=== PATIENT | female | born 1950 | race Caucasian/White ===

== ENCOUNTER 2017-10-17 15:15 | Outpatient (CLI) | payer MEDICARE | END 2017-10-17 15:16 | disposition home or self-care (01) | LOC: BICRAD 15:15 | PROVIDERS: ATTEND Family Medicine | DX: R06.02 Shortness of breath (principal); R07.89 Other chest pain; R05 Cough; Z86.79 Personal history of other diseases of the circulatory system | CPT/HCPCS: 71046 ==

== ENCOUNTER 2018-01-05 16:48 | Outpatient (CLI) | payer MEDICARE | END 2018-01-05 16:49 | disposition home or self-care (01) | LOC: BICRAD 16:48 | PROVIDERS: ATTEND Family Medicine | DX: J18.9 Pneumonia, unspecified organism (principal); R91.8 Other nonspecific abnormal finding of lung field | CPT/HCPCS: 71046 ==

== ENCOUNTER 2019-02-01 09:04 | Observation (INO) | payer MEDICARE ==
--- NOTE | 2019-02-01 09:52 | RAD ---
Chest AP view INDICATION: Chest pain COMPARISON: December 03, 2015 and January 05, 2018 FINDINGS: Lungs:The lungs are clear Cardiac silhouette pulmonary vasculature:The cardiomediastinal silhouette appears within normal limit s. Pleural spaces:No pleural effusion or pneumothorax is demonstrated. Upper abdomen:No abnormality seen. Osseous structures: No acute osseous abnormality. IMPRESSION: No acute cardiopulmonary abnormality.
[2019-02-01 09:53] LABS: #Eosinphils 0.1 thou/uL (0.0-0.7); #Lymphocytes 1.6 thou/uL (1.20-3.40); #Monocytes 0.3 thou/uL (0.11-0.59); #Neutrophils 4.2 thou/uL (1.40-6.50); %Basophils 0.8 % (0.0-1.0); %Eosinophils 1.6 % (0.0-10.0); %Lymphocytes 25.8 % (21.0-51.0); %Monocytes 4.2 % (0.0-10.0); %Neutrophils 67.6 % (42.0-75.0); Hemoglobin 13.5 g/dL (12.0-16.0); Mean Corpuscular HGB CONC 33.9 g/dL (32.0-36.0); Mean Corpuscular Hemoglobin 35.3 pg (27.0-31.0); Mean Platelet Volume 6.4 fL (7.4-10.4); Platelet Count 231 thou/uL (130-400); RBC Distribution Width 13.3 % (11.5-14.5); Red Blood Cell (RBC) Count 3.82 mill/uL (4.20-5.40); White Blood Cell (WBC) Count 6.3 thou/uL (4.8-10.8)
[2019-02-01 10:16] LABS: ALT (SGPT) 14 U/L (8-55); AST (SGOT) 16 U/L (5-34); Albumin 4.3 g/dL (3.4-4.8); Alkaline Phosphatase 84 U/L (40-150); Anion Gap 16 mmol/L (10-20); BUN (Urea Nitrogen) 11 mg/dL (9.8-20.1); Bilirubin, Total 0.8 mg/dL (0.2-1.2); CK (CPK) 54 U/L (29-168); Calc. Creatinine Clearance 0 mL/min (70-130); Carbon Dioxide 24 mmol/L (23-31); Chloride 104 mmol/L (98-107); Estimated GFR-MDRD 63; Globulin 2.6 g/dL (2.4-3.5); Glucose 176 mg/dL (80-115); Potassium 4.2 mmol/L (3.5-5.1); Protein, Total 6.9 g/dL (6.0-8.3); Sodium 140 mmol/L (136-145)
[2019-02-01] MEDS ORDERED: Ondansetron PF 4 MG/2 ML Vial ONE (10:43)
[2019-02-01] MEDS ORDERED: Pantoprazole 40 MG VIAL ONE (10:43)
[2019-02-01] MEDS ORDERED: Lidocaine Viscous Sol 2% 15 ml UD Cup ONE (10:43)
[2019-02-01] MEDS ORDERED: Mag-Al 1200 mg/1200 mg/30 ML UDCUP ONE (10:43)
[2019-02-01] MEDS ORDERED: Nitroglycerin 0.4 MG TAB 1 EACH ONE (11:00)
[2019-02-01] MEDS ORDERED: Fentanyl 100 MCG/2 ML VIAL ONE (11:40)
[2019-02-01] MEDS ORDERED: Nitroglycerin 0.4 MG TAB (25 Tab Bottle) PO PRN (12:46)
[2019-02-01] MEDS ORDERED: Dextrose 5% in Water 1,000 ML IV PRN (12:56)
[2019-02-01] MEDS ORDERED: Dextrose 50% Abboject 50 ML SYRINGE SLOW IVP PRN (12:56)
[2019-02-01] MEDS ORDERED: HumaLOG 300 UNITS/3 ML VIAL SC PRN (12:56)
[2019-02-01] MEDS ORDERED: Fentanyl 100 MCG/2 ML VIAL SLOW IVP PRN (12:57)
[2019-02-01] MEDS ORDERED: Lidocaine 2% Viscous Solution 10 ML, Aluminum & Magnesium Hydroxide 30 ML SSW SCH (13:00)
[2019-02-01] MEDS ORDERED: Promethazine HCl 25 MG/ML VIAL ONE (13:05)
--- NOTE | 2019-02-01 13:28 | HP ---
PRIMARY CARE PROVIDER: Dr. Elvia Hurd. RN TRAVELING: Dr. Conti. CHIEF COMPLAINT: Chest pain. HISTORY OF PRESENT ILLNESS: Ms. Gallegos is a pleasant 68-year-old lady, who was seen at [facility] on February 01, 2019. She reports that she developed chest pain around 4:00 a.m. It is retrosternal, sharp, radiating to the back, burning kind of sensation, constant, improved with morphine. She received nitrates and GI cocktail, but reports that they did not help. She denies any fevers or chills. She reports nausea and vomiting. She reports that similar pain is present in her epigastrium as well. REVIEW OF SYSTEMS: All other systems reviewed and found to be negative. PAST MEDICAL HISTORY: Atrial fibrillation, osteoarthritis, hypertension, diabetes mellitus type 2, gastric ulcer in the past, right ankle fracture, and left ankle fracture. PAST SURGICAL HISTORY: Right hip surgery, hysterectomy, right-sided lumpectomy. PSYCHIATRIC HISTORY: Anxiety and depression. SOCIAL HISTORY: The patient denies tobacco use, alcohol use, or recreational drug use. FAMILY HISTORY: Several family members with myocardial infarction. CODE STATUS: I discussed her code status. She is full code. ALLERGIES: CODEINE, CORTISONE, AND IBUPROFEN. CURRENT MEDICATIONS: 1. Benzonatate 200 mg as needed. 2. Ferrous sulfate 325 mg 2 times a day. 3. [place] p.r.n. 4. Lasix 40 mg daily. 5. Promethazine 25 mg every 6 hours as needed. 6. Digoxin 125 mcg daily. 7. Duloxetine 60 mg daily. 8. Metformin 500 mg 2 times a day. 9. DHA one capsule daily. 10. Brintellix 15 mg 2 times a day. PHYSICAL EXAMINATION: GENERAL: On examination, Ms. Gallegos is awake and alert, not in acute distress. She is obese. VITAL SIGNS: Blood pressure is 131/59, pulse 56, respiratory rate 18, and oxygen saturation 97% on 2 L. She is afebrile. EYES: No scleral icterus, no conjunctival pallor. ENT: Moist mucosal membranes. No oropharyngeal erythema or exudates. NECK: Supple, nontender, trachea is midline. RESPIRATORY: Accessory muscles of breathing are not active. Chest wall movements are symmetric bilaterally. Lungs are clear to auscultation without wheeze, rhonchi, or crepitations. CARDIOVASCULAR: S1 and S2 are heard, bradycardic and regular. Peripheral pulses palpable. No carotid bruit. No pericardial rub. ABDOMEN: Soft, nontender, bowel sounds heard, no hepatomegaly, no splenomegaly. SKIN: No rashes or subcutaneous nodules. LYMPHATIC: No cervical lymphadenopathy. NEUROLOGIC: Cranial nerves 2 through 12 are intact. MUSCULOSKELETAL: Power is 5/5 in all four extremities. PSYCHIATRIC: Normal mood, normal affect, the patient is oriented to person, place, and time. LABORATORY DATA: Ms. Gallegos's labs and investigations were reviewed. I reviewed her electrocardiogram, which shows normal sinus rhythm, no ST changes to suggest an acute coronary syndrome. I also reviewed her chest x-ray, which does not show any pulmonary infiltrates. She has an unremarkable CBC and an unremarkable comprehensive metabolic profile. First troponin I is negative. ASSESSMENT AND PLAN: Ms. Gallegos is a pleasant 68-year-old lady, who was seen at [facility] on February 01, 2019. Her problem list includes: 1. Chest pain: Ms. Gallegos is presenting with chest pain. Her chest pain is atypical. She has not found any relief with nitrates or with GI cocktail. She reports that the chest pain has not resolved and it is ongoing, although it has improved after she received morphine. She will be admitted on observation status for telemetry monitoring. We will also consult Cardiology Service. Please note that the patient has not received morphine, but she has received fentanyl in the emergency room. 2. Diabetes mellitus type 2: We will start Accu-Cheks and insulin sliding scale. 3. Hypertension: We will monitor vital signs and titrate antihypertensives as needed. 4. Osteoarthritis: Stable. 5. History of atrial fibrillation: The patient is currently in sinus rhythm. Many thanks for allowing me to participate in your patient's care. Please feel free to contact me with any questions or concerns. LEVEL OF RISK: High. LEVEL OF COMPLEXITY: High. Job ID: [id number]
[2019-02-01 13:43] LABS: Troponin I Less than 0.010 ng/mL (< 0.028)
[2019-02-01 14:17] VITALS: BMI 37.8
[2019-02-01 16:38] LABS: Troponin I Less than 0.010 ng/mL (< 0.028)
[2019-02-01] MEDS: Ondansetron ODT 4 MG TAB PO SCH (18:00)
--- NOTE | 2019-02-01 18:20 | CON ---
DATE OF CONSULTATION: 02/01/2019 PRIMARY BULK PALLET BUILDER: Ramila Conti MD REASON FOR CONSULTATION: Chest pain. HISTORY OF PRESENT ILLNESS: Ms. Gallegos is a pleasant 68-year-old black female, who comes to the hospital for nausea, vomiting, and chest pain. She states at 4:00 am she started having mid epigastric chest pain that woke her up, radiating to the back. Describes a burning sensation. She started vomiting and has been dry heaving all day long pretty much. She came to the ER secondary to this and received a GI cocktail with no improvement whatsoever. She also had nitrates, which did not improve her pain, morphine helped. Currently, she is chest-pain free. Her last stress test with Dr. Conti was in 2017, which was normal. PAST MEDICAL HISTORY: 1. History of SVT. 2. There is history of atrial fibrillation. I see no evidence of atrial fibrillation in any of her notes. She has been in SVT before, but never in atrial fibrillation. 3. Osteoarthritis. 4. Hypertension. 5. Type 2 diabetes. 6. Gastric ulcer in the past. 7. Right ankle fracture. 8. Left ankle fracture. PAST SURGICAL HISTORY: 1. Right hip surgery. 2. Hysterectomy. 3. Right-sided lumpectomy. SOCIAL HISTORY: No alcohol, tobacco, or drugs. FAMILY HISTORY: Early coronary artery disease in mother and father. OUTPATIENT MEDICATIONS: Include: 1. Benzonatate. 2. Ferrous sulfate. 3. [place] p.r.n. 4. Lasix 40 mg a day. 5. Promethazine. 6. Digoxin 125 mcg a day. 7. Duloxetine 60 mg a day. 8. Metformin 500 mg b.i.d. 9. DHA. 10. Brintellix 15 mg twice a day. ALLERGIES: CODEINE, CORTISONE, AND IBUPROFEN. REVIEW OF SYSTEMS: A 12-point review of systems was done and was found to be negative unless stated in the history of present. PHYSICAL EXAMINATION: VITAL SIGNS: Temperature 98.6, pulse 65, respiratory rate 20, saturating 98% on room air, and blood pressure 150/69. GENERAL: Awake, alert, and oriented x3, in no distress. HEENT: Normocephalic and atraumatic. NECK: Supple. LUNGS: Clear. CARDIOVASCULAR: S1 and S2. No S3 or S4. ABDOMEN: Soft. Positive bowel sounds. Mild epigastric pain. No rebound or guarding. EXTREMITIES: Trace edema. SKIN: Warm and dry. LABORATORY DATA: Laboratory work was reviewed. CBC is unremarkable. Chemistries are unremarkable except for glucose of 176. Troponin is undetectable x2. EKG was reviewed. ASSESSMENT AND PLAN: 1. Epigastric pain. 2. Chronic obstructive pulmonary disease. 3. History of tobacco use. 4. History of gastric ulcer in the past. PLAN: 1. We will get a stress test to risk stratify. However, her pain is most likely GI in nature. We would continue PPI b.i.d. and possibly call GI if this pain persists. 2. We will rule out the heart with a stress test and that is the case, she may need an endoscopy as an outpatient. 3. Dr. Conti, her primary automobile painter will follow up in the morning. Job ID: [id number]
[2019-02-01] MEDS ORDERED: Acetaminophen 325 MG TAB PO PRN (18:24)
[2019-02-02] MEDS: Ondansetron ODT 4 MG TAB PO SCH ×3 (00:45→14:40)
[2019-02-02 04:36] LABS: Bilirubin Negative (Negative); Blood, Urine Small (Negative); Clarity CLEAR (Clear); Glucose, Urine (Dipstick) Negative (Negative); Leukocyte Small (Negative); Nitrite Positive (Negative); Protein, Urine (Dipstick) Negative (Neg-Trace); Specific Gravity, Urine 1.025 (1.002-1.036); Urobilinogen 0.2 mg/dL (0.2-1.0); pH, Urine 5.5 (5.0-9.0)
[2019-02-02 04:38] LABS: Bacteria/HPF 4+ HPF (None Seen); Hyaline Casts/LPF 0-3 HYALINE CAST LPF (0-3 Hyaline); Pathc Cast-AUWi Flag 0.27 (0-2.49); RBC/HPF 0-3 HPF (0-3); Squamous Epithelial 0-3 HPF (0-3)
[2019-02-02] MEDS ORDERED: Regadenoson 0.4 MG/5 ML SYRINGE ONE (08:22)
[2019-02-02] MEDS ORDERED: PROVENTIL INHALER 6.7 G (200 INHALATIONS) INH PRN (08:25)
[2019-02-02] MEDS ORDERED: Non-Formulary Item 1 EACH (Cholecalciferol (Vitamin D3) [Vitamin D3] 50,000 UNIT) PO SCH (08:30)
[2019-02-02] MEDS ORDERED: Ergocalciferol 1.25 MG(50,000 UNITS) CAP PO SCH (08:45)
[2019-02-02] MEDS ORDERED: Ferrous Sulfate 325 MG TAB PO SCH (09:00)
[2019-02-02] MEDS ORDERED: Vortioxetine Hydrobromide [Trintellix] 10 MG PO SCH (09:00)
[2019-02-02] MEDS ORDERED: Non-Formulary Item 1 EACH (Losartan Potassium [Losartan Potassium] 50 MG) PO SCH (09:00)
[2019-02-02] MEDS ORDERED: ALPRAZolam 0.25 MG TAB PO SCH ×2 (09:00)
[2019-02-02] MEDS ORDERED: Non-Formulary Item 1 EACH (Ferrous Sulfate [Ferrous Sulfate] 325 MG) PO SCH (09:00)
[2019-02-02] MEDS ORDERED: Furosemide 20 MG TAB PO SCH (09:00)
[2019-02-02] MEDS ORDERED: Digoxin 0.125 MG TAB PO SCH (09:00)
[2019-02-02] MEDS ORDERED: Losartan 25 MG TAB PO SCH (09:00)
[2019-02-02] MEDS ORDERED: Non-Formulary Item 1 EACH (Fluticasone/Vilanterol [Breo Ellipta 200-25 Mcg Inh] 1 PUFF) INH SCH (09:00)
[2019-02-02] MEDS ORDERED: Aspirin 325 mg Enteric Coated Tablet PO SCH (09:00)
[2019-02-02] MEDS ORDERED: Aspirin 81 mg Enteric Coated Tablet PO SCH (09:00)
[2019-02-02] MEDS ORDERED: Non-Formulary Item 1 EACH (Vortioxetine Hydrobromide [Trintellix] 10 MG) PO SCH (09:00)
--- NOTE | 2019-02-02 11:48 | PDOC.CTH ---
Cardiology Progress Note - Subjective The pt seen and examined. No overnight events. No cardiac complaints. - Objective Vital Signs Temp Pulse Resp BP Pulse Ox 02/02/19 11:06 99.7 F H 73 16 107/54 L 92 L 02/02/19 09:09 80 02/02/19 08:51 99.2 F 80 16 113/56 L 95 02/02/19 04:05 99.6 F 74 18 129/61 95 Weight 232 lb 1.6 oz 02/01/19 02/02/19 02/03/19 06:59 06:59 06:59 Intake Total 1170 Output Total 500 Balance 670 - Physical Examination General/Neuro: alert & oriented x3 Neck: no JVD present Lungs: CTA Heart: RRR Abdomen: soft Extremities: other: (No edema) - Telemetry Telemetry Rhythm: SR - Labs Result Diagrams: 02/01/19 09:36 02/01/19 09:36 Troponin/CKMB Troponin I Less than 0.010 ng/mL (< 0.028) 02/01/19 16:05 - Assessment/Plan 1. CP - No more CP; waiting for stress test result 2. hx of N&V for last 2 days - No more episodes; May need to EGD as outpt. 3. hx of SVT/Afib - 4. HTN - stable 5. DM type 2 - managed by PCP 6. Hx of Gastric ulcer 7. Anxiety/Depression - MAR reviewed Pt. seen and eval. I agree with the A/P by the DIE REPAIRER TRIMMER DIES. The stress test is negative for ischemia. Chest clear. RRR. Okay to d/c pt. to home. F/U in 1-2 months in office. Review of Systems - Review of Systems Constitutional: reports: no symptoms reported EENTM: reports: no symptoms reported Respiratory: reports: no symptoms reported Cardiac (ROS): reports: no symptoms reported ABD/GI: reports: no symptoms reported : reports: no symptoms reported Musculoskeletal: reports: no symptoms reported
--- NOTE | 2019-02-02 14:25 | NM ---
Exam: Because medicine cardiac stress HISTORY: Chest pain. Comparison none TECHNIQUE: Stress only images were performed. Patient was administered 27.40 mCi of technetium 99m se stamibi. FINDINGS: Homogeneous distribution of the radiotracer. End-diastolic volume is 83 mL End systolic volume is 14 mL Cardiac gating: Normal wall motion and thickening. 84% ejection fraction IMPRESSION: 1. Homogeneous distribution radiotracer. 2. 84% ejection fraction.
[2019-02-02 16:02] VITALS: BP 100/53; TEMP 97.7
[2019-02-02] MEDS ORDERED: metFORMIN 500 MG TAB PO SCH (17:00)
[2019-02-02] MEDS ORDERED: Mometasone/Formoterol 120 PUFF INHALER INH SCH (18:30)
--- NOTE | 2019-02-03 02:55 | DIS ---
DATE OF ADMISSION: 02/01/2019 DATE OF DISCHARGE: 02/02/2019 PRIMARY CARE PROVIDER: Dr. Elvia Hurd. DISCHARGE DIAGNOSES: 1. Chest pain. 2. Chest pain most likely secondary to gastrointestinal causes. CONSULTATIONS DURING THIS HOSPITALIZATION: Cardiology, Dr. [place]. CONDITION: Condition of patient on the day of discharge: Stable. I assessed Ms. Gallegos on the day of discharge. She reports that she does not have any chest pain. Vital signs are stable. S1 and S2 are heard, regular. Lungs are clear to auscultation bilaterally. DISCHARGE MEDICATIONS: In addition to her pre-admission home medications as dictated on my history and physical note dated February 01, 2019, she is being discharged on Protonix 40 mg 2 times a day. HOSPITAL COURSE: Ms. Gallegos is a pleasant 68-year-old lady, who was admitted to [facility] for a chest discomfort on February 01, 2019. Please refer to my history and physical note dated February 01, 2019 for further details. She was seen by Cardiology Service. She was started on Protonix for possible GI causes. Nuclear stress test showed homogeneous distribution of radiotracer and left ventricle ejection fraction of 84%. She has been advised to seek referral to Gastroenterology Service through her primary care provider's office. She is being discharged home on PPI in addition to her home medications. Please note that her chest pain resolved during this hospitalization. Many thanks for allowing me to participate in your patient's care. Please feel free to contact me with any questions or concerns. DISCHARGE DESTINATION: Home. Job ID: [id number]
== END 2019-02-02 17:43 | disposition home or self-care (01) ==
LOC: ERS 09:04 → 2SW 11:29
PROVIDERS: ADMIT Internal Medicine; ATTEND Internal Medicine
DX: R07.89 Other chest pain (principal); I48.91 Unspecified atrial fibrillation; M19.90 Unspecified osteoarthritis, unspecified site; I10 Essential (primary) hypertension; E11.9 Type 2 diabetes mellitus without complications; F41.9 Anxiety disorder, unspecified; F32.9 Major depressive disorder, single episode, unspecified; J44.9 Chronic obstructive pulmonary disease, unspecified; Z79.84 Long term (current) use of oral hypoglycemic drugs; Z79.899 Other long term (current) drug therapy; Z88.5 Allergy status to narcotic agent; Z88.8 Allergy status to other drugs, medicaments and biological substances
CPT/HCPCS: 71045; 78452; 80053; 82550; 82962 ×2; 84484 ×2; 85025; 93005; 93017; 94760 ×2; 96361; 96365; 96375; 99285; A9500; G0378 ×2; 36415; 36416; 81003; 81015; C9113; J2405; J2550; J2785; J3010; Q0162

== ENCOUNTER 2020-03-09 18:45 | Emergency (ER) | payer MEDICARE ==
[~2020-03-09 18:45] MED LIST: Iopamidol-370 76% 500 ML 1 ML ONE
--- NOTE | 2020-03-09 19:58 | RAD ---
Chest AP view INDICATION: Burning chest pain COMPARISON: February 01, 2019 single view of the chest FINDINGS: Lungs: Patient is rotated slightly limiting the exam. No definite acute airspace opacity is evident when accounting for the rotation. Cardiac silhouette: The cardiomediastinal silhouette appears within normal limits. Pulmonary vasculature: Normal Pleural spaces: No pleural effusion or pneumothorax is demonstrated. Upper abdomen: No abnormality seen. Osseous structures: No acute osseous abnormality. Additional findings: None. IMPRESSION: No acute cardiopulmonary abnormality.
[2020-03-09 20:06] LABS: Acetaminophen Less than 6.0 mcg/mL (10.0-30.0); Alcohol Less than 10 mg/dL (Less than 10); Salicylate Less than 8.0 mg/dL (15.0-30.0)
[2020-03-09 20:08] LABS: #Basophils 0.1 thou/uL (0.0-0.2); #Eosinphils 0.1 thou/uL (0.0-0.7); #Lymphocytes 2.9 thou/uL (1.20-3.40); #Monocytes 0.5 thou/uL (0.11-0.59); #Neutrophils 2.7 thou/uL (1.40-6.50); %Eosinophils 2.3 % (0.0-10.0); %Lymphocytes 45.6 % (21.0-51.0); %Monocytes 8.4 % (0.0-10.0); %Neutrophils 42.8 % (42.0-75.0); Hemoglobin 11.8 g/dL (12.0-16.0); Mean Corpuscular HGB CONC 35.9 g/dL (32.0-36.0); Mean Platelet Volume 6.6 fL (7.4-10.4); Platelet Count 232 thou/uL (130-400); RBC Distribution Width 14.3 % (11.5-14.5); Red Blood Cell (RBC) Count 2.95 mill/uL (4.20-5.40); White Blood Cell (WBC) Count 6.4 thou/uL (4.8-10.8)
[2020-03-09 20:22] LABS: MDiff Complete? YES; Macrocytosis SLIGHT = 6-15 cells (100X) (0-5/hpf); Platelet Morphology Comment Appears Adequate; Polychromasia SLIGHT = 2-3 cells (100X) (0-2/hpf)
[2020-03-09 20:36] LABS: ALT (SGPT) 17 U/L (8-55); AST (SGOT) 29 U/L (5-34); Albumin 4.3 g/dL (3.4-4.8); Alkaline Phosphatase 76 U/L (40-110); Anion Gap 16 mmol/L (10-20); BUN (Urea Nitrogen) 8 mg/dL (9.8-20.1); Bilirubin, Total 1.1 mg/dL (0.2-1.2); Calc. Creatinine Clearance 0 mL/min (70-130); Calcium 9.3 mg/dL (7.8-10.44); Carbon Dioxide 19 mmol/L (23-31); Chloride 106 mmol/L (98-107); Estimated GFR-MDRD 67; Globulin 2.8 g/dL (2.4-3.5); Glucose 107 mg/dL (83-110); Lipase 21 U/L (8-78); Potassium 4.3 mmol/L (3.5-5.1); Protein, Total 7.1 g/dL (6.0-8.3); Sodium 137 mmol/L (136-145)
[2020-03-09] MEDS ORDERED: Lorazepam 1 MG TAB ONE (20:38)
--- NOTE | 2020-03-09 20:50 | CT ---
CT Brain WO Con: 03/09/2020 7:21 PM CLINICAL HISTORY: Suicidal ideations; changes in behavior. IMAGING TECHNIQUE: Multiple CT images were obtained of the brain without IV contrast. COMPARISON: None. FINDINGS: BRAIN: Evidence of infarct: There is generalized cerebral atrophy. No definite acute infarct is present. Evidence of cranial hemorrhage: None. Evidence of midline shift: Third ventricle and septum pellucidum are midline. Ventricles: Normal. No hydrocephalus. SKULL: Intact. VISUALIZED PARANASAL SINUSES: There is mucosal thickening within air-fluid level right maxillary sin us. MASTOID AIR CELLS: Clear. EXTRACRANIAL SOFT TISSUES: Normal. IMPRESSION: 1. No acute intracranial abnormality. 2. Suspicion for right maxillary sinusitis
--- NOTE | 2020-03-09 20:56 | CT ---
CT OF THE ABDOMEN AND PELVIS WITH IV CONTRAST INDICATION: History of diarrhea for 3 months COMPARISON: 6 CT the abdomen and pelvis dated July 25, 2017 from prior radiology associates FINDINGS: ABDOMEN: Lung bases: Clear Liver: Mild fatty infiltration Gallbladder: Contracted Pancreas: Normal. Adrenal glands: Normal. Spleen: Normal. Kidneys and ureters: There is a 5 mm stone involving the inferior pole of the left kidney. No hydrone phrosis evident. Right kidney is normal-appearing. Vasculature: There are mild vascular calcifications seen involving the visualized vasculature. Lymph nodes:No lymphadenopathy. Free fluid in abdomen:No free fluid is evident. PELVIS: Small and large bowel: Small lipoma seen within the region of the ascending colon is stable. Appendix:Normal Bladder: Normal. Rectal and perirectal soft tissues:Normal. Reproductive structures: Surgically absent Free fluid in pelvis: No free fluid is evident. Lymphadenopathy pelvis: No lymphadenopathy is evident. Osseous structures: Right total hip replacement. No acute fracture or subluxation demonstrated. Ther e is scattered degenerative and osteoarthritic changes. Soft tissues:Normal. IMPRESSION: 1. No acute abnormality. 2. Stable left nephrolithiasis. 3. Stable small intramural lipoma within the ascending colon.
[2020-03-09 21:16] LABS: Bilirubin Negative (Negative); Blood, Urine Negative (Negative); Clarity Clear (Clear); Glucose, Urine (Dipstick) Normal (Negative); Leukocyte 75 Leu/uL (Negative); Nitrite Negative (Negative); Protein, Urine (Dipstick) Negative (Neg-Trace); RBC/HPF 0-3 HPF (0-3); Renal Epithelial 0-3 HPF (None Seen); Squamous Epithelial 0-3 HPF (0-3); Urobilinogen Normal mg/dL (Less than 2); WBC/HPF 0-3 HPF (0-3)
[2020-03-09 21:22] LABS: Bacteria/HPF 2+ HPF (None Seen)
[2020-03-09 21:23] LABS: Amphetamine Not Detected (NotDetected); Barbiturates Screen Not Detected (NotDetected); Benzodiazepine Screen Detected (NotDetected); Cocaine Metabolite Screen Not Detected (NotDetected); Medtox Control Line Valid? VALID (VALID); Medtox Reader # READER 4; Methadone Not Detected (NotDetected); Methamphetamine Not Detected (NotDetected); Opiate Screen Not Detected (NotDetected); Oxycodone Screen Not Detected (NotDetected); Phencyclidine (PCP) Not Detected (NotDetected); THC/Cannabinoid Screen Not Detected (NotDetected); Tricyclic Screen Not Detected (NotDetected)
[2020-03-10] MEDS ORDERED: Lorazepam 2 MG/ML VIAL ONE (00:19)
[2020-03-10] MEDS ORDERED: Digoxin 0.125 MG TAB PO SCH (07:15)
[2020-03-10] MEDS ORDERED: metFORMIN 500 MG TAB PO SCH (07:15)
[2020-03-10] MEDS ORDERED: ALPRAZolam 0.25 MG TAB PO SCH (07:15)
[2020-03-10] MEDS ORDERED: ALPRAZolam 0.25 MG TAB ONE (08:40)
[2020-03-10] MEDS ORDERED: Digoxin 0.125 MG TAB ONE (08:41)
== END 2020-03-10 11:59 ==
LOC: ERS 18:45
DX: R45.851 Suicidal ideations (principal); F32.9 Major depressive disorder, single episode, unspecified; F41.9 Anxiety disorder, unspecified; E11.9 Type 2 diabetes mellitus without complications; M19.90 Unspecified osteoarthritis, unspecified site; Z79.899 Other long term (current) drug therapy; Z79.84 Long term (current) use of oral hypoglycemic drugs
CPT/HCPCS: 70450; 71045; 74177; 80053; 80306; 80307; 81003; 81015; 83690; 84443; 85025; 93005; 94760; 96360; J2060; Q9967

== ENCOUNTER 2023-10-28 17:43 | Emergency (ER) | payer MEDICARE, OTHER | END 2023-10-28 21:00 | disposition home or self-care (01) | LOC: ERS 17:43 | DX: S09.90XA Unspecified injury of head, initial encounter (principal); S01.81XA Laceration without foreign body of other part of head, initial encounter; S01.111A Laceration without foreign body of right eyelid and periocular area, initial encounter; E10.9 Type 1 diabetes mellitus without complications; K21.9 Gastro-esophageal reflux disease without esophagitis; I10 Essential (primary) hypertension; G20.A1 Parkinson's disease without dyskinesia, without mention of fluctuations; W01.198A Fall on same level from slipping, tripping and stumbling with subsequent striking against other object, initial encounter; Z79.899 Other long term (current) drug therapy | CPT/HCPCS: 12011; 70450; 72125; 72170 ==